=== PATIENT | female | born 1995 ===

== ENCOUNTER 2017-10-24 07:20 | Emergency (ER) | payer SELFPAY ==
[2017-10-24 07:32] VITALS: RESP 16; O2SAT 100
[2017-10-24] MEDS ORDERED: Lactated Ringer's 1,000 ML IV STA (07:34)
[2017-10-24] MEDS ORDERED: Lactated Ringer's 1,000 ML ONE (07:56)
[2017-10-24 08:07] LABS: BASO # 0.1 K/uL (0.0-0.2); BASO % 0.9 % (0.0-2.0); EOS # 0.1 K/uL (0.0-0.7); EOS % 1.2 % (0.0-4.0); HEMATOCRIT 37.2 % (34.0-47.0); LYMPH # 2.4 K/uL (1.0-4.3); LYMPH % 32.9 % (20.0-40.0); MEAN CORPUSCULAR HEMOGLOBIN 29.4 pg (27.0-31.0); MEAN CORPUSCULAR HGB CONC 34.1 g/dL (33.0-37.0); MEAN PLATELET VOLUME 8.4 fL (7.2-11.7); MONO # 0.5 K/uL (0.0-0.8); MONO % 7.2 % (0.0-10.0); RED CELL DISTRIBUTION WIDTH 12.6 % (11.5-14.5); WHITE BLOOD COUNT 7.3 K/uL (4.8-10.8)
[2017-10-24 08:18] LABS: RBC URINE 1257 /hpf (0-3); URINE BACTERIA RARE (<OCC); URINE BILIRUBIN NEGATIVE (NEGATIVE); URINE BLOOD 3+ (NEGATIVE); URINE COLOR Yellow (YELLOW); URINE GLUCOSE (UA) NORMAL (Normal); URINE KETONE NEGATIVE (NEGATIVE); URINE LEUKOCYTE ESTERASE NEG Leu/uL (Negative); URINE PROTEIN NEGATIVE (NEGATIVE); URINE UROBILINOGEN NORMAL mg/dL (0.2-1.0); WBC URINE 2 /hpf (0-5)
[2017-10-24 08:19] LABS: ALB/GLOB RATIO 1.5 (1.0-2.1); ALKALINE PHOSPHATASE 43 U/L (38-126); ALT/SGPT 63 U/L (9-52); AST/SGOT 29 U/L (14-36); BILIRUBIN,TOTAL 0.4 mg/dL (0.2-1.3); BLOOD UREA NITROGEN 8 mg/dL (7-17); CALCIUM 8.9 mg/dl (8.6-10.4); CARBON DIOXIDE 26 mmol/L (22-30); CHLORIDE 103 mmol/L (98-107); GFR AFRICAN-AMERICAN > 60; GLUCOSE,RANDOM 102 mg/dL (65-105); POTASSIUM 3.9 mmol/L (3.6-5.2); SODIUM 137 mmol/L (132-148); TOTAL PROTEIN 7.2 g/dL (6.3-8.3)
--- NOTE | 2017-10-24 10:15 | C.PDOC ---
History Of Present Illness 22yo female, , LMP 3 months ago, presents to ED with complaints of vaginal bleeding since this morning. Patient states she also passed some tissue vaginally. She denies any abdominal pain, nausea, vomiting or dysuria. No other complaints. Time Seen by Provider: 10/24/17 07:32 Chief Complaint (Nursing): Female Genitourinary History Per: Patient History/Exam Limitations: no limitations Onset/Duration Of Symptoms: Hrs Current Symptoms Are (Timing): Still Present Associated Symptoms: denies: Nausea, Vomiting, Diarrhea Abnormal Vaginal Bleeding: Yes Last Menstral Period: 3 months ago Past Medical History Reviewed: Historical Data, Nursing Documentation, Vital Signs Vital Signs: Last Vital Signs Temp 98.3 F 10/24/17 10:55 Pulse 85 10/24/17 10:55 Resp 16 10/24/17 10:55 BP 102/66 10/24/17 10:55 Pulse Ox 100 10/24/17 10:55 - Medical History PMH: Anemia Surgical History: No Surg Hx Family History: States: No Known Family Hx - Social History Hx Alcohol Use: No Hx Substance Use: No - Immunization History Hx Tetanus Toxoid Vaccination: No Hx Influenza Vaccination: No Hx Pneumococcal Vaccination: No Review Of Systems Except As Marked, All Systems Reviewed And Found Negative. Gastrointestinal: Negative for: Nausea, Vomiting, Abdominal Pain, Diarrhea Genitourinary: Positive for: Vaginal Discharge (tissue), Vaginal Bleeding Physical Exam - Physical Exam Appears: No Acute Distress Skin: Normal Color Neck: Supple Cardiovascular: Rhythm Regular Respiratory: Normal Breath Sounds Gastrointestinal/Abdominal: Normal Exam, Soft, No Tenderness Neurological/Psych: Oriented x3 ED Course And Treatment - Laboratory Results Result Diagrams: 10/24/17 07:59 10/24/17 07:59 O2 Sat by Pulse Oximetry: 100 (RA) Pulse Ox Interpretation: Normal Medical Decision Making Medical Decision Making: Plan: -- US Pelvis/Transvaginal -- Labs -- IV Lactated Ringers Disposition - Disposition Referrals: Singh Villasenor, [Non-Staff] - Disposition: HOME/ ROUTINE Disposition Time: 10:30 Condition: GOOD Additional Instructions: Thank you for letting us take care of you today. The emergency medical care you received today was directed at your acute symptoms. If you were prescribed any medication, please fill it and take as directed. It may take several days for your symptoms to resolve. Return to the Emergency Department if your symptoms worsen, do not improve, or if you have any other problems. Please contact your doctor or call one of the physicians/clinics you have been referred to that are listed on the Patient Visit Information form that is included in your discharge packet. Bring any paperwork you were given at discharge with you along with any medications you are taking to your follow up visit. Our treatment cannot replace ongoing medical care by a primary care provider (PCP) outside of the emergency department. Thank you for allowing the [facility] team to be part of your care today. Return to the emergency room in 2 days for repeat blood work and possibly another ultrasound. If you start to bleed heavily, please return immediately. Prescriptions: Cephalexin [cephalexin] 500 mg PO Q8 #15 cap Instructions: Threatened Miscarriage (ED), Urinary Tract Infection in Women (ED ), Pelvic Rest (ED) Forms: [facility] (Turkmen) - Clinical Impression Clinical Impression: Threatened - Scribe Statement The provider has reviewed the documentation as recorded by the Rasheeda Rinaldi Provider Attestation: All medical record entries made by the Rasheeda were at my direction and personally dictated by me. I have reviewed the chart and agree that the record accurately reflects my personal performance of the history, physical exam, medical decision making, and the department course for this patient. I have also personally directed, reviewed, and agree with the discharge instructions and disposition.
--- NOTE | 2017-10-24 10:27 | US ---
Pelvic ultrasound History: Vaginal bleeding. Comparison: None available. Technique: Real-time sonography performed through the pelvis. Findings: Positive test with HCG level measuring 5237. Uterus: 8.7 x 4.6 x 5.2 centimeters. Heterogeneous echotexture. Anteverted. Somewhat thickened and heterogeneous endometrium measuring up to 1.1 centimeters. Question mild vascularity and or question of possible small clot at this level. Clinical correlation. No discrete intrauterine identified. Small amount of free fluid within the pelvic cul-de-sac. Right ovary: 3.6 x 2.0 x 3.1 centimeters. Normal flow. Left ovary: 2.8 x 2.3 x 2.2 centimeters. Normal flow. Impression: Positive test. No discrete intrauterine identified. These findings may represent a missed versus early versus ectopic . Continued interval follow-up is recommended if indicated. Somewhat thickened and heterogeneous endometrium measuring up to 1.1 centimeters. Question mild vascularity and or question of possible small clot at this level. Clinical correlation. Small amount of free fluid within the pelvic cul-de-sac. Limited 1st trimester ultrasound for viability purposes only. Continued interval followup with serial ultrasound, serial HCG levels, and gynecological consultation would be helpful if clinically indicated.
[2017-10-24 10:55] VITALS: BP 102/66; PULSE 85; TEMP 98.3
== END 2017-10-24 11:14 | disposition home or self-care (01) ==
LOC: C.ER 07:20
DX: O20.0 Threatened abortion (principal)
CPT/HCPCS: 76830; 76856; 80053; 81001; 83690; 84702; 85025; 86850; 86900; 87086; 96360; 99284; J7120

== ENCOUNTER 2017-10-26 11:11 | Emergency (ER) | payer SELFPAY ==
[2017-10-26 11:32] VITALS: TEMP 98.3
--- NOTE | 2017-10-26 11:37 | C.PDOC ---
History Of Present Illness 22 year old female presents to the ED for a repeat beta hCG count and ultrasound. Patient was evaluated in this ED two days ago for complaints of vaginal bleeding for one day. Patient notes she passed some tissue prior to being evaluated in the ED. Patient underwent ultrasound which showed questionable IUP; results were questionable for miscarriage vs ectoptic . Patient states she still has some mild vaginal bleeding with cramping , but her symptoms have improved overall. Patient denies fever, chills, back pain at this time. Time Seen by Provider: 10/26/17 11:34 Chief Complaint (Nursing): Medical Clearance History Per: Patient History/Exam Limitations: no limitations Onset/Duration Of Symptoms: Days Current Symptoms Are (Timing): Better Additional History Per: Patient Past Medical History Reviewed: Historical Data, Nursing Documentation, Vital Signs Vital Signs: Last Vital Signs Temp 98.3 F 10/26/17 11:28 Pulse 84 10/26/17 14:19 Resp 16 10/26/17 14:19 BP 123/75 10/26/17 14:19 Pulse Ox 99 10/26/17 19:33 - Medical History PMH: Anemia Surgical History: No Surg Hx Family History: States: Unknown Family Hx - Social History Hx Alcohol Use: No Hx Substance Use: No - Immunization History Hx Tetanus Toxoid Vaccination: No Hx Influenza Vaccination: No Hx Pneumococcal Vaccination: No Review Of Systems Constitutional: Negative for: Fever, Chills Gastrointestinal: Positive for: Abdominal Pain (cramping ) Genitourinary: Positive for: Vaginal Bleeding Physical Exam - Physical Exam Appears: Non-toxic, No Acute Distress Skin: Normal Color, Warm, Dry Oral Mucosa: Moist Gastrointestinal/Abdominal: Soft, No Tenderness, No Guarding, No Rebound Neurological/Psych: Oriented x3, Normal Speech, Normal Cognition ED Course And Treatment O2 Sat by Pulse Oximetry: 99 (on RA) Pulse Ox Interpretation: Normal - CT Scan/US transvaginal US Other Rad Studies (CT/US): Interpreted By Me, Read By Radiologist, Radiology Report Reviewed CT/US Interpretation: HISTORY: sponat. vs ectopic . COMPARISON: None available. TECHNIQUE: Transvaginal pelvic ultrasound. FINDINGS: UTERUS: Measures 9.5 x 4.3 x 6.7 cm. Anteverted. ENDOMETRIUM: Measures 1.1 cm in diameter. No evidence of intrauterine gestational sac. CERVIX: No cervical abnormality identified. RIGHT OVARY: Measures 3.6 x 1.9 x 3.5 cm. Blood flow is demonstrated. LEFT OVARY: Measures 3.4 x 2.1 x 2.9 cm. Blood flow is demonstrated. FREE FLUID: No significant free fluid noted. OTHER FINDINGS: None. IMPRESSION: No evidence of intrauterine gestational sac. If indeed the patient is based on serum beta HCG values, the sonographic findings represent either: Very early IUP; embryonic demise; ectopic gestation. Follow-up with serial quantitative serum beta HCG measurements and post OBGYN follow-up as clinically indicated, since ectopic gestation cannot be excluded based only on sonographic findings. Progress Note: Labs ordered and reviewed. Transvaginal US ordered and reviewed. Patient's beta hCG results dropped significantly from around 5000 to 800. Patient is resting comfortably, showing no signs of distress and is stable for discharge. Patient is advised to return to ED in 2 days for repeat beta count and to follow up with FOUNDR[employer] WORKER APPRENTICE within 1-2 days for further evaluation. Disposition - Disposition Disposition: HOME/ ROUTINE Disposition Time: 13:49 Condition: GOOD Additional Instructions: Follow up with OBGYN within 1-2 days. Return to Ed in 2-3 days to repeat beta HCG. Return to ED immediately if feel worse. Instructions: Spontaneous Miscarriage (ED) Forms: [employer] (Croatian) - Clinical Impression Clinical Impression: Vaginal bleeding affecting early - PA / ASSISTANT PROJECT MANAGER / Resident Statement MD/DO has reviewed & agrees with the documentation as recorded. - Scribe Statement The provider has reviewed the documentation as recorded by the Scribe (Meenakshi Jensen) All medical record entries made by the Scribe were at my direction and personally dictated by me. I have reviewed the chart and agree that the record accurately reflects my personal performance of the history, physical exam, medical decision making, and the department course for this patient. I have also personally directed, reviewed, and agree with the discharge instructions and disposition.
--- NOTE | 2017-10-26 12:49 | US ---
HISTORY: sponat. vs ectopic COMPARISON: None available. TECHNIQUE: Transvaginal pelvic ultrasound FINDINGS: UTERUS: Measures 9.5 x 4.3 x 6.7 cm. Anteverted. ENDOMETRIUM: Measures 1.1 cm in diameter. No evidence of intrauterine gestational sac. CERVIX: No cervical abnormality identified. RIGHT OVARY: Measures 3.6 x 1.9 x 3.5 cm. Blood flow is demonstrated. LEFT OVARY: Measures 3.4 x 2.1 x 2.9 cm. Blood flow is demonstrated. FREE FLUID: No significant free fluid noted. OTHER FINDINGS: None. IMPRESSION: No evidence of intrauterine gestational sac. If indeed the patient is based on serum beta HCG values, the sonographic findings represent either: Very early IUP; embryonic demise; ectopic gestation. Follow-up with serial quantitative serum beta HCG measurements and post OBGYN follow-up as clinically indicated, since ectopic gestation cannot be excluded based only on sonographic findings.
[2017-10-26 14:20] VITALS: BP 123/75; PULSE 84; RESP 16
[2017-10-26 19:22] VITALS: O2SAT 99
== END 2017-10-26 14:19 | disposition home or self-care (01) ==
LOC: C.ER 11:11
DX: O20.9 Hemorrhage in early pregnancy, unspecified (principal); Z3A.00 Weeks of gestation of pregnancy not specified

== ENCOUNTER 2017-10-28 13:01 | Emergency (ER) | payer SELFPAY ==
[2017-10-28 13:13] VITALS: O2SAT 98
--- NOTE | 2017-10-28 13:43 | C.PDOC ---
History Of Present Illness 22 y/o female presents to ED for repeat beta HCG and with complaints of mild abdominal pain and vaginal bleeding. Patient was seen at ED on 10/26/17 for same symptoms and was told to come back in 2 days for beta repeat. Patient denies fever, chills, back pain or any other complaints at this time. Time Seen by Provider: 10/28/17 13:25 Chief Complaint (Nursing): Abdominal Pain History Per: Patient History/Exam Limitations: no limitations Onset/Duration Of Symptoms: Days Current Symptoms Are (Timing): Still Present Location Of Pain/Discomfort: Suprapubic Past Medical History Reviewed: Historical Data, Nursing Documentation, Vital Signs Vital Signs: Last Vital Signs Temp 98.6 F 10/28/17 16:15 Pulse 58 L 10/28/17 16:15 Resp 16 10/28/17 16:15 BP 98/61 L 10/28/17 16:15 Pulse Ox 98 10/28/17 16:15 - Medical History PMH: Anemia Surgical History: No Surg Hx Family History: States: No Known Family Hx - Social History Hx Alcohol Use: No Hx Substance Use: No - Immunization History Hx Tetanus Toxoid Vaccination: No Hx Influenza Vaccination: No Hx Pneumococcal Vaccination: No Review Of Systems Constitutional: Negative for: Fever, Chills Gastrointestinal: Positive for: Abdominal Pain. Negative for: Nausea, Vomiting Genitourinary: Positive for: Vaginal Bleeding. Negative for: Dysuria Skin: Negative for: Rash Physical Exam - Physical Exam Appears: Non-toxic Skin: Normal Color, Warm, Dry, No Rash Head: Atraumatic, Normacephalic Eye(s): bilateral: Normal Inspection, EOMI Oral Mucosa: Moist Neck: Supple Chest: Symmetrical Cardiovascular: Rhythm Regular Respiratory: Normal Breath Sounds, No Rales, No Rhonchi, No Wheezing Gastrointestinal/Abdominal: Soft, No Tenderness, No Guarding, No Rebound Back: No CVA Tenderness Extremity: Normal ROM, No Deformity, No Swelling Neurological/Psych: Oriented x3, Normal Speech Gait: Steady ED Course And Treatment O2 Sat by Pulse Oximetry: 98 (RA) Pulse Ox Interpretation: Normal Medical Decision Making Medical Decision Making: Impression: Miscarriage Plan:Beta HCG Progress: Beta HCG levels lowered from 5000 to 800. Today BHCG is 300. Trending down. Patient is seated comfortably in no distress, chatting with friend at bedside. Provide lab report. Instruct to follow up with associate professor of radiology for further evaluation and have lab repeated Disposition Counseled Patient/Family Regarding: Diagnosis, Need For Followup - Disposition Referrals: Yuri Chaudhari MD [Staff Provider] - Disposition: HOME/ ROUTINE Disposition Time: 15:58 Condition: STABLE Additional Instructions: [facility] 300 Follow up with your associate professor of radiology within one week for further evaluation. Advised to have ultrasound in one week Instructions: Spontaneous Miscarriage (ED) Forms: [employer] (Kuwaiti) - POA Present On Arrival: None - Clinical Impression Clinical Impression: - PA / GUEST SERVICES / Resident Statement MD/DO has reviewed & agrees with the documentation as recorded. - Scribe Statement The provider has reviewed the documentation as recorded by the Jeffibchristine Cabrera All medical record entries made by the Jeffibchristine were at my direction and personally dictated by me. I have reviewed the chart and agree that the record accurately reflects my personal performance of the history, physical exam, medical decision making, and the department course for this patient. I have also personally directed, reviewed, and agree with the discharge instructions and disposition.
[2017-10-28 16:16] VITALS: BP 98/61; PULSE 58; RESP 16; TEMP 98.6
== END 2017-10-28 16:18 | disposition home or self-care (01) ==
LOC: C.ER 13:01
DX: O03.9 Complete or unspecified spontaneous abortion without complication (principal)

== ENCOUNTER 2018-02-12 11:47 | Emergency (ER) | payer MEDICAID ==
[2018-02-12 11:52] VITALS: BP 93/63; PULSE 96; RESP 20; TEMP 98.5; O2SAT 100
[2018-02-12] MEDS ORDERED: Sodium Chloride 0.9% 1,000 ML IV ONE (12:16)
--- NOTE | 2018-02-12 12:36 | C.PDOC ---
History Of Present Illness 22 years old female is currently 12 weeks , , presents to ED with complaints of vomiting that began 2 days ago. Patient reports she vomited multiple times today. Patient also reports associated symptoms of upper abdominal and throat pain. Denies fever, chills, dysuria, pelvic pain or bleeding. Time Seen by Provider: 02/12/18 12:10 Chief Complaint (Nursing): GI Problem History Per: Patient History/Exam Limitations: no limitations Onset/Duration Of Symptoms: Days (2) Current Symptoms Are (Timing): Still Present Recent travel outside of the [place]: No Past Medical History Reviewed: Historical Data, Nursing Documentation, Vital Signs Vital Signs: Last Vital Signs Temp 98.5 F 02/12/18 11:50 Pulse 96 H 02/12/18 11:50 Resp 20 02/12/18 11:50 BP 93/63 L 02/12/18 11:50 Pulse Ox 100 02/12/18 13:54 - Medical History PMH: Anemia Family History: States: Unknown Family Hx - Social History Hx Alcohol Use: No Hx Substance Use: No - Immunization History Hx Tetanus Toxoid Vaccination: No Hx Influenza Vaccination: No Hx Pneumococcal Vaccination: No Review Of Systems Constitutional: Negative for: Fever, Chills Gastrointestinal: Positive for: Vomiting, Abdominal Pain. Negative for: Diarrhea Genitourinary: Negative for: Dysuria, Vaginal Bleeding, Pelvic Pain Neurological: Negative for: Weakness, Numbness Physical Exam - Physical Exam Appears: Well, Non-toxic, No Acute Distress Skin: Normal Color, Warm, Dry Head: Atraumatic, Normacephalic Eye(s): bilateral: Normal Inspection, PERRL Oral Mucosa: Moist Neck: Supple Chest: Symmetrical, No Tenderness Cardiovascular: Rhythm Regular Respiratory: Normal Breath Sounds, No Decreased Breath Sounds, No Rales, No Rhonchi, No Wheezing Gastrointestinal/Abdominal: Soft, No Tenderness Neurological/Psych: Oriented x3, Normal Speech, Normal Cognition, Other (no focal deficits ) ED Course And Treatment - Laboratory Results Result Diagrams: 02/12/18 12:38 02/12/18 12:38 O2 Sat by Pulse Oximetry: 100 (RA) Pulse Ox Interpretation: Normal Medical Decision Making Medical Decision Making: Administered Zofran and IV fluids. Ordered blood work and urinalysis. UA showed UTI. Culture sent and ordered IV Rocephin On re-eval, patient reports feeling better. She has no fever or abdominal tenderness. Rx given. Patient now able to tolerate PO. Patient stable for discharge. Disposition Counseled Patient/Family Regarding: Diagnosis, Need For Followup, Rx Given - Disposition Referrals: Niranjan [facility] [Outside] Disposition: HOME/ ROUTINE Disposition Time: 13:53 Condition: GOOD Additional Instructions: Jannette laboratorios muestran infeccin en la orina. [place] antibiticos dos veces al da y tome lquidos. monica medicamentos para las nuseas segn sea necesario. seguimiento con watson ob.diesel truck mechanic Prescriptions: Doxylamine/Pyridoxine HCl (B6) [Eliud Bailey 10-10 mg Tablet] 1 each PO Q8 #12 tablet. Nitrofurantoin Macrocrystals [Macrobid] 1 cap PO BID #14 cap Instructions: Urinary Tract Infections in Adults, Nausea and Vomiting of (DC) Forms: [employer] (Italian), Work Excuse Print Language: TRISTANIAN - Clinical Impression Clinical Impression: UTI (urinary tract infection), Vomiting affecting - PA / DIRECTOR HEMATOLOGY / Resident Statement MD/DO has reviewed & agrees with the documentation as recorded. - Scribe Statement The provider has reviewed the documentation as recorded by the Rasheeda Cardoso All medical record entries made by the Rasheeda were at my direction and personally dictated by me. I have reviewed the chart and agree that the record accurately reflects my personal performance of the history, physical exam, medical decision making, and the department course for this patient. I have also personally directed, reviewed, and agree with the discharge instructions and disposition.
[2018-02-12 12:42] LABS: BASO % 0.6 % (0.0-2.0); EOS % 0.1 % (0.0-4.0); HEMOGLOBIN 12.5 g/dL (11.0-16.0); LYMPH # 1.1 K/uL (1.0-4.3); LYMPH % 15.9 % (20.0-40.0); MEAN CELL VOLUME 83.7 fL (81.0-99.0); MEAN CORPUSCULAR HEMOGLOBIN 29.5 pg (27.0-31.0); MEAN CORPUSCULAR HGB CONC 35.3 g/dL (33.0-37.0); MEAN PLATELET VOLUME 8.5 fL (7.2-11.7); MONO # 0.3 K/uL (0.0-0.8); MONO % 3.8 % (0.0-10.0); NEUT # 5.7 K/uL (1.8-7.0); NEUT % 79.6 % (50.0-75.0); RBC 4.22 Mil/uL (3.80-5.20); RED CELL DISTRIBUTION WIDTH 12.4 % (11.5-14.5); WHITE BLOOD COUNT 7.2 K/uL (4.8-10.8)
[2018-02-12 12:48] LABS: SQUAMOUS EPITHIAL 36 /hpf (0-5); URINE BACTERIA OCC (<OCC); URINE BILIRUBIN NEGATIVE (NEGATIVE); URINE BLOOD NEGATIVE (NEGATIVE); URINE CLARITY Hazy (Clear); URINE COLOR Amber (YELLOW); URINE GLUCOSE (UA) NORMAL (Normal); URINE LEUKOCYTE ESTERASE 3+ Leu/uL (Negative); URINE PROTEIN 2+ mg/dL (NEGATIVE); URINE UROBILINOGEN NORMAL mg/dL (0.2-1.0)
[2018-02-12 12:51] LABS: HCG,QUALITATIVE URINE POSITIVE (NEGATIVE)
[2018-02-12 13:01] LABS: ALBUMIN 4.2 g/dL (3.5-5.0); ALT/SGPT 11 U/L (9-52); AST/SGOT 21 U/L (14-36); BLOOD UREA NITROGEN 10 mg/dL (7-17); CALCIUM 9.5 mg/dl (8.6-10.4); GFR AFRICAN-AMERICAN > 60; GFR NON-AFRICAN AMERICAN > 60
[2018-02-12] MEDS ORDERED: cefTRIAXone IV 1 gm in Dextros 50 ML IV ONE (13:03)
[2018-02-12] MEDS ORDERED: cefTRIAXone IV 1 gm in Dextros 50 ML IVPB ONE (13:21)
== END 2018-02-12 14:26 | disposition home or self-care (01) ==
LOC: C.ER 11:47
DX: O21.9 Vomiting of pregnancy, unspecified (principal); O23.41 Unspecified infection of urinary tract in pregnancy, first trimester; Z3A.12 12 weeks gestation of pregnancy
CPT/HCPCS: 80053; 81001; 84702; 84703; 85025; 87086; 87181; 96361; 96374; 96375; 99284; J0696; J2405; J7040

== ENCOUNTER 2018-03-31 17:07 | Emergency (ER) | payer MEDICAID ==
[2018-03-31 17:50] LABS: HCG,QUALITATIVE URINE POSITIVE (NEGATIVE)
[2018-03-31 17:55] LABS: SQUAMOUS EPITHIAL 25 /hpf (0-5); URINE BACTERIA RARE (<OCC); URINE BILIRUBIN NEGATIVE (NEGATIVE); URINE BLOOD NEGATIVE (NEGATIVE); URINE CLARITY Hazy (Clear); URINE COLOR Yellow (YELLOW); URINE GLUCOSE (UA) NORMAL (Normal); URINE LEUKOCYTE ESTERASE 3+ Leu/uL (Negative); URINE PROTEIN NEGATIVE (NEGATIVE); URINE UROBILINOGEN NORMAL mg/dL (0.2-1.0)
[2018-03-31 18:05] LABS: BASO # 0.1 K/uL (0.0-0.2); BASO % 0.8 % (0.0-2.0); EOS % 0.6 % (0.0-4.0); HEMOGLOBIN 11.4 g/dL (11.0-16.0); LYMPH # 1.8 K/uL (1.0-4.3); LYMPH % 26.7 % (20.0-40.0); MEAN CELL VOLUME 83.1 fL (81.0-99.0); MEAN CORPUSCULAR HEMOGLOBIN 29.2 pg (27.0-31.0); MEAN CORPUSCULAR HGB CONC 35.1 g/dL (33.0-37.0); MEAN PLATELET VOLUME 8.3 fL (7.2-11.7); MONO # 0.5 K/uL (0.0-0.8); MONO % 8.1 % (0.0-10.0); NEUT # 4.3 K/uL (1.8-7.0); NEUT % 63.8 % (50.0-75.0); RBC 3.91 Mil/uL (3.80-5.20); RED CELL DISTRIBUTION WIDTH 13.3 % (11.5-14.5); WHITE BLOOD COUNT 6.7 K/uL (4.8-10.8)
--- NOTE | 2018-03-31 18:15 | C.PDOC ---
History Of Present Illness <Shira iRvera - Last Filed: 03/31/18 18:43> <Walter Perez - Last Filed: 03/31/18 20:00> 22 y/o female currently 19 weeks presents to ED with c/o low abdominal pain for 3 days associated with dysuria. Patient has history of UTI 2 months ago and reports symptoms feel the same. Patient denies fever, vaginal bleeding, vaginal discharge, nausea, vomiting or any other complaints at this time. (Shira Rivera) History Per: Patient History/Exam Limitations: no limitations Onset/Duration Of Symptoms: Days Current Symptoms Are (Timing): Still Present Quality Of Discomfort: "Pain" Associated Symptoms: Urinary Symptoms <Shira Rivera - Last Filed: 03/31/18 18:43> <Walter Perez - Last Filed: 03/31/18 20:00> Time Seen by Provider: 03/31/18 17:38 Chief Complaint (Nursing): Female Genitourinary Past Medical History Reviewed: Historical Data, Nursing Documentation, Vital Signs - Medical History PMH: Anemia Surgical History: No Surg Hx Family History: States: No Known Family Hx - Social History Hx Alcohol Use: No Hx Substance Use: No - Immunization History Hx Tetanus Toxoid Vaccination: No Hx Influenza Vaccination: No Hx Pneumococcal Vaccination: No <Shira Rivera - Last Filed: 03/31/18 18:43> Vital Signs: Last Vital Signs Temp 98.4 F 03/31/18 17:09 Pulse 98 H 03/31/18 17:09 Resp 16 03/31/18 17:09 BP 100/62 03/31/18 17:09 Pulse Ox 99 03/31/18 18:44 Review Of Systems Constitutional: Negative for: Fever, Chills Gastrointestinal: Positive for: Abdominal Pain. Negative for: Nausea, Vomiting , Diarrhea Genitourinary: Positive for: Dysuria. Negative for: Vaginal Discharge, Vaginal Bleeding Musculoskeletal: Negative for: Back Pain Skin: Negative for: Rash <Sihra Rivera - Last Filed: 03/31/18 18:43> Physical Exam - Physical Exam Appears: Non-toxic, No Acute Distress Skin: Warm, Dry, No Rash Head: Atraumatic, Normacephalic Eye(s): bilateral: Normal Inspection, EOMI Nose: Normal Oral Mucosa: Moist Neck: Normal ROM, Supple Cardiovascular: Rhythm Regular Respiratory: Normal Breath Sounds, No Rales, No Rhonchi, No Wheezing Gastrointestinal/Abdominal: Tenderness (Suprapubic), No Guarding, No Rebound, Other (Gravid abdomen) Back: No CVA Tenderness, No Paraspinal Tenderness Neurological/Psych: Oriented x3, Normal Speech, Normal Cognition <Shira Rivera - Last Filed: 03/31/18 18:43> ED Course And Treatment - Laboratory Results Result Diagrams: 03/31/18 17:55 O2 Sat by Pulse Oximetry: 99 (RA) Pulse Ox Interpretation: Normal Progress Note: Blood work, UA and Pelvis US ordered. Macrobid administered. Patient offered pain medication and diclined. Case endorsed to Dr. Perez pending US and re-evaluation. <Shira Rivera - Last Filed: 03/31/18 18:43> - Laboratory Results Result Diagrams: 03/31/18 17:55 03/31/18 17:55 - CT Scan/US Pelvic US Other Rad Studies (CT/US): Read By Radiologist, Radiology Report Reviewed CT/US Interpretation: IMPRESSION: Single live IUP as above. Limited study. Progress Note: Pt was signed out to me at 7pm by Dr. Smalls/SHELLEY Roe to f/up pelvic US report. Reassessment Condition: Improved <Walter Perez - Last Filed: 03/31/18 20:00> Disposition - Disposition Disposition Time: 19:00 <Shira Rivera - Last Filed: 03/31/18 18:43> Counseled Patient/Family Regarding: Studies Performed, Diagnosis, Need For Followup, Rx Given - Disposition Disposition Time: 20:00 <Walter Perez - Last Filed: 03/31/18 20:00> - Disposition Referrals: Tony Ely MD [Staff Provider] - Disposition: HOME/ ROUTINE Condition: STABLE Additional Instructions: Drink plenty of fluids. Follow up with your Pressure Sealer And Tester doctor. Return to the ER if you develop fever, vomiting, vaginal bleeding or discharge, worsening of symptoms or if you have any other concerns. Prescriptions: Nitrofurantoin Macrocrystals [Macrobid] 1 cap PO BID #14 cap Instructions: Urinary Tract Infection, Adult (DC) Forms: [employer] (Belarusian) - Clinical Impression Clinical Impression: UTI (urinary tract infection), with 18 completed weeks gestation - PA / CONCRETING SUPERVISOR / Resident Statement MD/DO has reviewed & agrees with the documentation as recorded. - Scribe Statement The provider has reviewed the documentation as recorded by the Scribe <Shira Rivera - Last Filed: 03/31/18 18:43> <Walter Perez - Last Filed: 03/31/18 20:00> - Scribe Statement Lowell Cabrera All medical record entries made by the Scribe were at my direction and personally dictated by me. I have reviewed the chart and agree that the record accurately reflects my personal performance of the history, physical exam, medical decision making, and the department course for this patient. I have also personally directed, reviewed, and agree with the discharge instructions and disposition. (Shira Rivera)
[2018-03-31 18:44] LABS: ALBUMIN 3.6 g/dL (3.5-5.0); GFR AFRICAN-AMERICAN > 60; GFR NON-AFRICAN AMERICAN > 60
[2018-03-31 18:51] LABS: ALT/SGPT 17 U/L (9-52); AST/SGOT 21 U/L (14-36); BLOOD UREA NITROGEN 7 mg/dL (7-17); CALCIUM 9.3 mg/dl (8.6-10.4)
--- NOTE | 2018-03-31 19:44 | US ---
EXAM: US After First Trimester, Transabdominal CLINICAL HISTORY: 22 years old, female; Pain; complicated by abdominal or pelvic pain; Generalized abdominal pain; Second trimester; Gestational age or lmp: [id number]; TECHNIQUE: Real-time transabdominal obstetrical ultrasound of the maternal pelvis and a second or third trimester with image documentation. COMPARISON: No relevant prior studies available. FINDINGS: Fetus: Single live intrauterine cephalic presentation. Heart rate: 161 bpm Placenta: Posterior. No abruption. Anatomy: Not evaluated. BIOMETRICS Gestational age: 18 weeks 4 days +/- 1 week 2 days SANDRA: 08/28/2018 EFW: 242 +/- 36 g BPD: 4.22 cm HC: 15.34 cm AC: 12.48 cm FL: 2.9 cm MATERNAL: Uterus: No acute abnormality as visualized. Cervix: No acute abnormality as visualized. Closed. Free fluid: No free fluid. IMPRESSION: Single live IUP as above. Limited study.
[2018-03-31 20:10] VITALS: BP 97/63; PULSE 84; RESP 18; TEMP 98; O2SAT 98
== END 2018-03-31 20:10 | disposition home or self-care (01) ==
LOC: C.ER 17:07
DX: O23.42 Unspecified infection of urinary tract in pregnancy, second trimester (principal); Z3A.18 18 weeks gestation of pregnancy

== ENCOUNTER 2018-05-31 10:35 | Emergency (ER) | payer MEDICAID ==
[2018-05-31] MEDS ORDERED: Lactated Ringer's 1,000 ML IV ONE (11:11)
[2018-05-31 11:34] LABS: BASO % 0.4 % (0.0-2.0); EOS # 0.1 K/uL (0.0-0.7); EOS % 0.7 % (0.0-4.0); HEMOGLOBIN 10.6 g/dL (11.0-16.0); LYMPH # 1.8 K/uL (1.0-4.3); LYMPH % 21.8 % (20.0-40.0); MEAN CORPUSCULAR HEMOGLOBIN 29.9 pg (27.0-31.0); MEAN PLATELET VOLUME 8.5 fL (7.2-11.7); MONO # 0.5 K/uL (0.0-0.8); MONO % 6.1 % (0.0-10.0); NEUT # 5.8 K/uL (1.8-7.0); RBC 3.54 Mil/uL (3.80-5.20); RED CELL DISTRIBUTION WIDTH 14.1 % (11.5-14.5); WHITE BLOOD COUNT 8.1 K/uL (4.8-10.8)
[2018-05-31 11:36] LABS: MEAN CELL VOLUME 85.6 fL (81.0-99.0); SQUAMOUS EPITHIAL 14 /hpf (0-5); URINE BILIRUBIN NEGATIVE (NEGATIVE); URINE BLOOD NEGATIVE (NEGATIVE); URINE CLARITY Hazy (Clear); URINE COLOR Yellow (YELLOW); URINE GLUCOSE (UA) NORMAL (Normal); URINE LEUKOCYTE ESTERASE 3+ Leu/uL (Negative); URINE PROTEIN NEGATIVE (NEGATIVE); URINE UROBILINOGEN NORMAL mg/dL (0.2-1.0)
[2018-05-31 11:53] LABS: ALB/GLOB RATIO 1.1 (1.0-2.1); ALBUMIN 3.6 g/dL (3.5-5.0); ALT/SGPT 21 U/L (9-52); AMYLASE 64 U/L (30-110); AST/SGOT 15 U/L (14-36); BILIRUBIN,DIRECT 0.4 mg/dL (0.0-0.4); BLOOD UREA NITROGEN 6 mg/dL (7-17); CALCIUM 9.2 mg/dl (8.6-10.4); GFR AFRICAN-AMERICAN > 60; GFR NON-AFRICAN AMERICAN > 60; LIPASE 38 U/L (23-300)
--- NOTE | 2018-05-31 13:49 | OBDCSUM ---
Datetime: 05/31/2018 13:48 Discharged to, Provider: Home Follow up at, Provider: 1 day Follow up in weeks, Provider: clinic Discharge Comment, Provider: dc home ptl given po hy macrobid f/u Discharge Diagnosis Prov Other: 28week nst gasytroenteritis
--- NOTE | 2018-05-31 13:50 | OBHP ---
Datetime: 05/31/2018 13:44 IP Adm Impression: , intrauterine IP Chief Complaint Other: vomting IP Admit Plan: Discharge home Admit Comment, IP Provider: at 28weeks came with c/o vomiting x 5 and c/o constant abdominal pa in from morning, no vb , lof+fm obhx primi pmh de med pnv all nkda psh de soch de ve closed terb given ua 3 + le a/p at 28 weks gastronteritis/uti/ ctxs plan dc home ptl given po hy macrobid f/u Pelvic Type - PN: Adequate Extremities - PN: Normal Abdomen - PN: Normal Back - PN: Normal Breast - PN: Normal Lungs - PN: Normal Heart - PN: Normal Thyroid - PN: Normal Neurologic - PN: Normal HEENT - PN: Normal General - PN: Normal FHR - Baseline A Provider: 150 Contraction Comments Provider: none Vital Signs Provider: Reviewed; Within Normal Limits NICHD Variability Prov Fetus A: Moderate 6-25bpm NICHD Accel Fetus A IP Provider: 10X10 FHR Category Provider Fetus A: Category I Dilatation, Provider: 0 Effacement, Provider: 0 Station, Provider: 0 Genitourinary Exam: Normal DTRs - PN: Normal
--- NOTE | 2018-05-31 16:06 | OBHP ---
Datetime: 05/31/2018 16:04 Admit Comment, IP Provider: while we were preparing for discharge pt complain of pain irrg ctxs ve closed s/p terb plan send to [facility] for evauluation. dr jackson accepted the transfer. pt understand and agrees
[2018-06-06 13:18] VITALS: BP 107/65; PULSE 105
== END 2018-05-31 15:00 | disposition short-term general hospital (02) ==
LOC: C.EROB 10:35
DX: O47.03 False labor before 37 completed weeks of gestation, third trimester (principal); O23.43 Unspecified infection of urinary tract in pregnancy, third trimester; K52.9 Noninfective gastroenteritis and colitis, unspecified; Z3A.28 28 weeks gestation of pregnancy
CPT/HCPCS: 80053; 81001; 82150; 82248; 83690; 85025; 99283; J3105; J7120

== ENCOUNTER 2018-06-21 14:15 | Emergency (ER) | payer MEDICAID ==
[2018-06-21 14:37] VITALS: BMI 24.0
--- NOTE | 2018-06-21 14:44 | OBHP ---
Datetime: 06/21/2018 14:39 IP Adm Impression: , intrauterine IP Chief Complaint Other: nuasea/vomitig Admit Comment, IP Provider: [id number] 32weks came with c/o vomiting started yesterday b 6 times and to day 4 times, no vb, lof+fm obhx rimi pmh de med pnv all nkda psh de soch de ve close a/p a 31wek gastroenteritis cbc/cmp/ua zofran cont enid ivf cont close observation Pelvic Type - PN: Adequate Extremities - PN: Normal Abdomen - PN: Normal Back - PN: Normal Breast - PN: Normal Lungs - PN: Normal Heart - PN: Normal Thyroid - PN: Normal Neurologic - PN: Normal HEENT - PN: Normal General - PN: Normal FHR - Baseline A Provider: 130 Contraction Comments Provider: none NICHD Variability Prov Fetus A: Moderate 6-25bpm Dilatation, Provider: 0 Effacement, Provider: 0 Station, Provider: -3 Genitourinary Exam: Normal DTRs - PN: Normal Datetime: 05/31/2018 16:04 Vital Signs Provider: Reviewed; Within Normal Limits
[2018-06-21] MEDS ORDERED: Lactated Ringer's 1,000 ML IV SCH (14:45)
[2018-06-21 15:00] LABS: BASO % 0.4 % (0.0-2.0); EOS % 0.6 % (0.0-4.0); LYMPH # 1.7 K/uL (1.0-4.3); LYMPH % 21.5 % (20.0-40.0); MEAN CELL VOLUME 85.8 fL (81.0-99.0); MEAN CORPUSCULAR HEMOGLOBIN 29.8 pg (27.0-31.0); MEAN CORPUSCULAR HGB CONC 34.8 g/dL (33.0-37.0); MONO # 0.5 K/uL (0.0-0.8); MONO % 6.7 % (0.0-10.0); NEUT # 5.6 K/uL (1.8-7.0); NEUT % 70.8 % (50.0-75.0); RBC 3.7 Mil/uL (3.80-5.20); RED CELL DISTRIBUTION WIDTH 14.1 % (11.5-14.5); WHITE BLOOD COUNT 7.8 K/uL (4.8-10.8)
[2018-06-21 15:02] LABS: SQUAMOUS EPITHIAL 5 /hpf (0-5); URINE BACTERIA RARE (<OCC); URINE BILIRUBIN NEGATIVE (NEGATIVE); URINE BLOOD NEGATIVE (NEGATIVE); URINE CLARITY Hazy (Clear); URINE COLOR Yellow (YELLOW); URINE GLUCOSE (UA) NORMAL (Normal); URINE LEUKOCYTE ESTERASE 2+ Leu/uL (Negative); URINE PROTEIN NEGATIVE (NEGATIVE); URINE UROBILINOGEN NORMAL mg/dL (0.2-1.0)
[2018-06-21 15:15] LABS: ALB/GLOB RATIO 1.2 (1.0-2.1); ALBUMIN 3.7 g/dL (3.5-5.0); ALT/SGPT 15 U/L (9-52); AST/SGOT 21 U/L (14-36); BLOOD UREA NITROGEN 4 mg/dL (7-17); CALCIUM 9.4 mg/dl (8.6-10.4); GFR AFRICAN-AMERICAN > 60; GFR NON-AFRICAN AMERICAN > 60
--- NOTE | 2018-06-21 15:47 | OBHP ---
Datetime: 06/21/2018 14:39 Admit Comment, IP Provider: [id number] 32weks came with c/o vomiting started yesterday b 6 times and to day 4 times, no vb, lof+fm obhx rimi pmh de med pnv all nkda psh de soch de ve close a/p a 31wek gastroenteritis cbc/cmp/ua zofran cont enid ivf cont close observation 1600 pt feels beter. toleratedc food blod work neg plan dc home ptl gi po hy f/u in clinic in 1-2 da
--- NOTE | 2018-06-21 16:01 | OBDCSUM ---
Datetime: 06/21/2018 15:45 Discharged to, Provider: Home Follow up at, Provider: 1-2 days Disch Instr Activity: Normal activity Disch Instr Diet: Regular Discharge Time: 06/21/2018 15:53 Follow up in weeks, Provider: clinic Disch Referrals: None Discharge Comment, Provider: dc home ptl gi po hy f/u in clinic in 1-2 da Discharge Diagnosis Prov Other: 31 wee gastronetritis
[2018-06-21 20:04] VITALS: BP 92/60; PULSE 86; RESP 20; TEMP 98.8
== END 2018-06-21 16:03 | disposition home or self-care (01) ==
LOC: C.EROB 14:15
DX: O26.893 Other specified pregnancy related conditions, third trimester (principal); K52.9 Noninfective gastroenteritis and colitis, unspecified; Z3A.32 32 weeks gestation of pregnancy
CPT/HCPCS: 80053; 81001; 85025; 96374; 99283; J7120

== ENCOUNTER 2018-08-09 08:17 | Emergency (ER) | payer MEDICAID ==
--- NOTE | 2018-08-09 09:02 | OBHP ---
Datetime: 08/09/2018 08:55 IP Adm Impression: Term, intrauterine IP Admit Plan: Discharge home Admit Comment, IP Provider: at 38weeks came with irrg ctxs stared last night, no pain now,no vb , no lof+fm obhx primi pmh de mned pnv all kda psh de soch de ve //-3 a/p at 38weks early labor dc home labor g po hy f/u in clinic on Pelvic Type - PN: Adequate Extremities - PN: Normal Abdomen - PN: Normal Back - PN: Normal Breast - PN: Normal Lungs - PN: Normal Heart - PN: Normal Thyroid - PN: Normal Neurologic - PN: Normal HEENT - PN: Normal General - PN: Normal FHR - Baseline A Provider: 140 IP Hx Assessment: The History has been Reviewed and is Current EGA AdmitDate IP: 38.0 Vital Signs Provider: Reviewed; Within Normal Limits IP Chief Complaint: Uterine contractions NICHD Variability Prov Fetus A: Moderate 6-25bpm NICHD Accel Fetus A IP Provider: 15X15 FHR Category Provider Fetus A: Category I Dilatation, Provider: ft Effacement, Provider: 30 Station, Provider: -3 Genitourinary Exam: Normal DTRs - PN: Normal
== END 2018-08-09 08:59 | disposition home or self-care (01) ==
LOC: C.EROB 08:17
DX: O47.1 False labor at or after 37 completed weeks of gestation (principal); Z3A.38 38 weeks gestation of pregnancy

== ENCOUNTER 2018-08-18 14:07 | Inpatient (IN) | payer MEDICAID ==
[2018-08-18 15:44] LABS: SQUAMOUS EPITHIAL 5 /hpf (0-5); URINE BACTERIA RARE (<OCC); URINE BILIRUBIN NEGATIVE (NEGATIVE); URINE BLOOD NEGATIVE (NEGATIVE); URINE CLARITY Clear (Clear); URINE COLOR Yellow (YELLOW); URINE GLUCOSE (UA) NORMAL (Normal); URINE LEUKOCYTE ESTERASE 3+ Leu/uL (Negative); URINE PROTEIN NEGATIVE (NEGATIVE); URINE UROBILINOGEN NORMAL mg/dL (0.2-1.0)
[2018-08-18] MEDS ORDERED: Lactated Ringer's 1,000 ML IV ONE (18:09)
[2018-08-18] MEDS ORDERED: Lactated Ringer's 1,000 ML IV SCH (18:15)
[2018-08-18 18:30] LABS: BASO % 0.4 % (0.0-2.0); EOS % 0.4 % (0.0-4.0); HEMOGLOBIN 11.6 g/dL (11.0-16.0); LYMPH # 1.9 K/uL (1.0-4.3); LYMPH % 23.4 % (20.0-40.0); MEAN CELL VOLUME 86.5 fL (81.0-99.0); MEAN CORPUSCULAR HEMOGLOBIN 29.3 pg (27.0-31.0); MEAN CORPUSCULAR HGB CONC 33.9 g/dL (33.0-37.0); MEAN PLATELET VOLUME 10.1 fL (7.2-11.7); MONO # 0.6 K/uL (0.0-0.8); MONO % 7.1 % (0.0-10.0); NEUT # 5.7 K/uL (1.8-7.0); NEUT % 68.7 % (50.0-75.0); NRBC % 0.1 % (0.0-2.0); RBC 3.97 Mil/uL (3.80-5.20); RED CELL DISTRIBUTION WIDTH 13.5 % (11.5-14.5); WHITE BLOOD COUNT 8.2 K/uL (4.8-10.8)
--- NOTE | 2018-08-18 18:49 | US ---
Date of service: 08/18/2018 PROCEDURE: Biophysical profile score HISTORY: subjective vaginal bleed during third trimester COMPARISON: 04/03/2018 TECHNIQUE: Standard protocol for this study/examination. FINDINGS: FINDINGS: Biophysical profile score 8/8 Based on the followin. breathing movements: 2/2 2. Gross body movement: 2/2 3. tone: 2/2 4. Qualitative amniotic fluid index: 2/2 Cephalic presentation. Posterior placenta. No evidence of abruption or previa Gestational age derived from LMP 39 weeks 2 days. SANDRA 08/23/2018. Gestational age derived from the following biometric parameters 39 weeks 2 days. SANDRA 08/23/2018. Biparietal diameter 9.69 cm Head circumference 34.22 cm Abdominal circumference 35.11 cm Femur length 7.67 cm Estimated weight 1714 g Calculated cardiac rate 148 beats per min. Closed cervix measuring 2.70 cm IMPRESSION: Biophysical profile score 8/8. 39 weeks 2 days live intrauterine gestation. Gestational concordance documented. Adequate interval progression compared to the prior study.
--- NOTE | 2018-08-18 20:51 | OBADHP ---
Datetime: 08/18/2018 15:22 Admit Comment, IP Provider: cc: "vaginal bleeding" HPI: Patient is a 22 y/o who presented for complaints of vaginal bleeding. She is currently at 39 weeks and 2 days gestational age, as per 1st trimester ultrasound (02/17) and LMP (11/16/17). Ge garcia previously had a miscarriage at 16 weeks gestation. Her SANDRA is scheduled for 08/23. As per most rec ent ultrasound, placenta was noted to be in posterior position. She endorses movement and contr actions. She also mentions vaginal bleed, which was described as minimal spotting. She does not have LOF. She found out about her at 12 weeks gestation and has been taking vitamins si nce then. She also takes iron supplement. OBHx: patient had a miscarriage at 16 weeks gestation from prior . GynHx: UTI (06/16/18) and newly diagnosed anemia. Menarche was at 12 y/o. Periods are regular at 28 days. Periods last for 3 days in duration. No history of Sexually Transmitted Illnesses. No fibroids or cysts. Last pap smear (2 weeks ago) was normal. PMHx: GERD, PUD PSHx: none Meds: vitamin, iron supplement, omeprazole Allergies: ranitidine, pineapple SocialHx: denies EtOH during ; previous social drinker. Denies smoking and recreational d rug use. Unemployed. Monogamous with her partner. FamHx: mother (39 y/o) and dad (39 y/o) have no significant medical illnesses ROS: denies lightheadedness, dizziness, cp, sob, falls, vomiting, changes in bowel/bladder, leg pa in/swelling. Endorses spotting. Assessment: Patient is a 22 y/o who presented for complaints of vaginal bleeding. She is currently at 39 weeks and 2 days gestational age. Mild persistent tachycardia, probably dehydration Unfavorable cervix Plan: 1. Observe, no vaginal bleed noted on exam 2. NST reactive and tachycardia ressolved with IVH 3. AmniSure done and negative 4. OB Ultrasound ordered and negative with Placenta intact, posterior and normal 5. UA with large WBC's and 2+ LE. Pt started on Ancef 6. Admit for vaginal delivery. Will augment if indicated 7. Anticipate a vaginal delivery Jim Pal, DO PGY1 Note for Dr. Wright Pelvic Type - PN: Adequate Extremities - PN: Normal Abdomen - PN: Normal Back - PN: Normal Breast - PN: Not Done Lungs - PN: Normal Heart - PN: Normal Thyroid - PN: Not Done Neurologic - PN: Not Done HEENT - PN: Normal General - PN: Normal FHR - Baseline A Provider: 160 Comments, ACOG Physical Exam: Gen: NAD. AAOx3. Comfortable in bed. Heart: RRR, normal s1/s2. Lungs: CTA bilaterally. No w/r/r. Abdomen: Gravid abdomen. Fundal height is appropriate for gestational age, approximately 39 cm. : No vaginal bleed was noted on pelvic exam. Lower Ext: no pitting edema. No calf tenderness. Negative Agatha sign. Gestation - Est Wks by US: 39.2 Vital Signs Provider: Reviewed; Within Normal Limits IP Chief Complaint: Vaginal bleeding NICHD Variability Prov Fetus A: Moderate 6-25bpm NICHD Decel Fetus A IP Provider: None Dilatation, Provider: 2 Effacement, Provider: 50 Station, Provider: -3 Genitourinary Exam: Normal DTRs - PN: Normal EGA AdmitDate IP: 39.2 IP Adm Impression: Term, intrauterine IP Admit Plan: Observation/Evaluation Datetime: 08/09/2018 08:55 IP Hx Assessment: The History has been Reviewed and is Current NICHD Accel Fetus A IP Provider: 15X15 FHR Category Provider Fetus A: Category I Datetime: 06/21/2018 14:39 IP Chief Complaint Other: nuasea/vomitig Contraction Comments Provider: none
[2018-08-18] MEDS ORDERED: Bupivacaine HCl/FentaNYL Cit 0 ML EPI ONE (21:08)
[2018-08-18] MEDS ORDERED: Nalbuphine HCL 10 mg/ml Ampule IVP ONE (22:20)
[2018-08-18] MEDS ORDERED: DiphenhydrAMINE 50 mg/ml Inj IVP STA (22:21)
[2018-08-18] MEDS ORDERED: Oxytocin 30 UNIT 30 UNITS/500 ML BAG IV SCH (22:30)
[2018-08-18] MEDS ORDERED: DiphenhydrAMINE 50 mg/ml Inj ONE (22:31)
[2018-08-18] MEDS ORDERED: Nalbuphine HCL 10 mg/ml Ampule ONE (22:31)
[2018-08-18] MEDS ORDERED: Oxytocin 30 UNIT 30 UNITS/500 ML BAG IV ONE (22:31)
[2018-08-19] MEDS ORDERED: Bupivacaine HCl/FentaNYL Cit 100 ML EPI ONE (01:06)
--- NOTE | 2018-08-19 01:46 | OBADHP ---
Datetime: 08/18/2018 20:50 Amniotic Fluid Color, Provider: Clear Datetime: 08/18/2018 19:30 Admit Comment, IP Provider: cc: "vaginal bleeding" HPI: Patient is a 22 y/o who presented for complaints of vaginal bleeding. She is currently at 39 weeks and 2 days gestational age, as per 1st trimester ultrasound (02/17) and LMP (11/16/17). Ge garcia previously had a miscarriage at 16 weeks gestation. Her SANDRA is scheduled for 08/23. As per most rec ent ultrasound, placenta was noted to be in posterior position. She endorses movement and contr actions. She also mentions vaginal bleed, which was described as minimal spotting. She does not have LOF. She found out about her at 12 weeks gestation and has been taking vitamins si nce then. She also takes iron supplement. OBHx: patient had a miscarriage at 16 weeks gestation from prior . GynHx: UTI (06/16/18) and newly diagnosed anemia. Menarche was at 12 y/o. Periods are regular at 28 days. Periods last for 3 days in duration. No history of Sexually Transmitted Illnesses. No fibroids or cysts. Last pap smear (2 weeks ago) was normal. PMHx: GERD, PUD PSHx: none Meds: vitamin, iron supplement, omeprazole Allergies: ranitidine, pineapple SocialHx: denies EtOH during ; previous social drinker. Denies smoking and recreational d rug use. Unemployed. Monogamous with her partner. FamHx: mother (39 y/o) and dad (39 y/o) have no significant medical illnesses ROS: denies lightheadedness, dizziness, cp, sob, falls, vomiting, changes in bowel/bladder, leg pa in/swelling. Endorses spotting. Assessment: Patient is a 22 y/o who presented for complaints of vaginal bleeding. She is currently at 39 weeks and 2 days gestational age. Mild persistent tachycardia, probably dehydration Unfavorable cervix Plan: 1. Admit no vaginal bleed noted on exam 2. NST reactive and tachycardia ressolved with IVH 3. AmniSure done and negative 4. OB Ultrasound ordered and negative with Placenta intact, posterior and normal 5. UA with large WBC's and 2+ LE. Probable UTI and started on Ancef 6. Admit for vaginal delivery. Will augment if indicated 7. Anticipate a vaginal delivery Jim Pal, DO PGY1 Note for Dr. Wright Pelvic Type - PN: Adequate Extremities - PN: Normal Abdomen - PN: Normal Back - PN: Normal Breast - PN: Not Done Lungs - PN: Normal Heart - PN: Normal Thyroid - PN: Normal Neurologic - PN: Normal HEENT - PN: Normal General - PN: Normal Presentation-Admit: Vertex FHR - Baseline A Provider: 160 Membranes, Provider: Intact Contraction Comments Provider: 2-3 Gestation - Est Wks by US: 39.2 Vital Signs Provider: Reviewed; Within Normal Limits IP Chief Complaint: Uterine contractions; Signs/symptoms UTI; Maternal discomfort NICHD Variability Prov Fetus A: Moderate 6-25bpm NICHD Accel Fetus A IP Provider: 10X10 FHR Category Provider Fetus A: Category I NICHD Decel Fetus A IP Provider: None Dilatation, Provider: 2 Effacement, Provider: 50 Station, Provider: -2 Genitourinary Exam: Normal DTRs - PN: Normal EGA AdmitDate IP: 39.2 IP Adm Impression: Term, intrauterine ; Intact Membranes IP Admit Plan: Admit to unit; Initiate labor protocol
--- NOTE | 2018-08-19 01:51 | OBPN ---
Datetime: 08/19/2018 01:45 IP Progress Impression: Normal progression of labor; Reassuring heart rate IP Informed Consent Obtain: Vaginal Delivery IP Procedures: Sterile Vag Exam IP Progress Plan: Continue present management; Augmentation; Antibiotic therapy; Anticipate Vaginal Delivery Membranes, Provider: Ruptured Contraction Comments Provider: 2-3 FHR - Baseline A Provider: 150 Gestation - Est Wks by US: 39.3 Presentation-Admit: Vertex IP Progress Note Comment: Tracing still with HR around 150-160 and despite IV hydration Continuing with Ancef Q 8 Hrs Epidural placed after several attempts and pt more comfortable VSS,Afebrile Hope for a vaginal delivery Vital Signs Provider: Reviewed; Within Normal Limits NICHD Accel Fetus A IP Provider: 10X10 NICHD Variability Prov Fetus A: Moderate 6-25bpm Dilatation, Provider: 7 Effacement, Provider: 90 Station, Provider: -2 NICHD Decel Fetus A IP Provider: None Datetime: 08/18/2018 20:50 Amniotic Fluid Color, Provider: Clear Datetime: 08/18/2018 19:30 FHR Category Provider Fetus A: Category I
[2018-08-19] MEDS ORDERED: Lidocaine 2% MPF (5 ml) Inj ONE ×2 (01:59→05:22)
[2018-08-19] MEDS ORDERED: Lidocaine Hydrochloride 0 ML INJ ONE (05:22)
--- NOTE | 2018-08-19 06:04 | OBDS ---
DELIVERY PERSONNEL Delivery Doctor: Horace Wright MD General Accounting Clerk: Oksana Farmer RN Anesthesiologist: Dr. Blanchard MATERNAL INFORMATION Delivery Anesthesia: Epidural Medications in Delivery: pitocin 20 units Estimated Blood Loss (ml): 300 Placenta Cultured: No Maternal Complications: None Other Maternal Complications: uneventful delivery of a living baby girl. score of 9/9 given patricia cabrera rn. RN Comments: Colleen Cotter RN, Nga Henriquez RN and Angie Gastelum RN in room to assist Provider Comments: of a viable female from [facility] and with Right hand over face. Apgars 9_9 , BW 7lbs 6oz. Bilateral vaginal sulcus tears and Right Periurethral repaired under local Anesthesia. EBL 300 mls Pt and both tolerated the procedure well and both remained in S_S condition LABOR SUMMARY EDC: 08/23/2018 00:00 No. Babies in Womb: 1 Attempted: No Labor Anesthesia: Epidural LABOR INFORMATION Reason for Induction: Not Applicable Onset of Labor: 08/18/2018 22:00 Complete Dilatation: 08/19/2018 04:16 Oxytocin: Augmentation Group B Beta Strep: Negative Antibiotics # of Doses: 1 Antibiotics Time of Last Dose: 2240 Steroids Given: None Reason Steroids Not Administered: Not Applicable MEMBRANES Membranes Rupture Method: Artificial Rupture of Membranes: 08/18/2018 20:27 Length of Rupture (hrs): 8.52 Amniotic Fluid Color: Clear Amniotic Fluid Amount: Large Amniotic Fluid Odor: Normal STAGES OF LABOR Stage 1 hrs: 6 Stage 1 min: 16 Stage 2 hrs: 0 Stage 2 min: 42 Stage 3 hrs: 0 Stage 3 min: 3 Total Time in Labor hrs: 7 Total Time in Labor min: 1 VAGINAL DELIVERY Episiotomy: None Laceration Extension: Second Degree Laceration Type: Periurethral; Sulcus Laceration Repair: Yes Laceration Repair Note: Bilateral vaginal sulcus tears repaired with 2-0 Vicryl and Right Periurethr al repaired with 3-0 Chromic and both under Local Anesthesia. EBL 300 mls Pt tolerated well. Initial Vag Sponge Count: 10 Final Vag Sponge Count: 20 Initial Vag Sharps Count: 0 Final Vag Sharps Count: 2 Sponge Count Correct: Yes Sharps Count Correct: Yes CSECTION DELIVERY Primary Indication: N/A Secondary Indication: N/A CSection Urgency: N/A CSection Incidence: N/A Labor: N/A Elective: N/A CSection Incision: N/A BABY A INFORMATION Infant Delivery Date/Time: 08/19/2018 04:58 Method of Delivery: Vaginal Born in Route : No : N/A Forceps: N/A Vacuum Extraction: N/A Shoulder Dystocia : No SHOULDER DYSTOCIA BABY A Infant Delivery Date/Time: 08/19/2018 04:58 PRESENTATION/POSITION BABY A Presentation: Cephalic Cephalic Presentation: Vertex Vertex Position: Right Occiput Anterior Breech Presentation: N/A PLACENTA INFORMATION BABY A Placenta Delivery Time : 08/19/2018 05:01 Placenta Method of Delivery: Spontaneous Placenta Status: Delivered SCORES BABY A Heart Rate 1 min: >100 bpm Resp Effort 1 min: Good Cry Reflex Irritability 1 min: Cough or Sneeze or Pulls Away Muscle Tone 1 min: Active Motion Color 1 min: Body [place], Extremities Blue Resuscitation Effort 1 min: N/A SCORE 1 MIN: 9 Heart Rate 5 min: >100 bpm Resp Effort 5 min: Good Cry Reflex Irritability 5 min: Cough or Sneeze or Pulls Away Muscle Tone 5 min: Active Motion Color 5 min: Body [place], Extremities Blue Resuscitation Effort 5 min: N/A SCORE 5 MIN: 9 INFANT INFORMATION BABY A Gestational Age at Delivery: 39.2 Gestational Status: Term Infant Outcome : Liveborn Infant Condition : Stable Sex: Female IDENTIFICATION/MEDS BABY A ID Band Number: [id number] ID Band Location: Left Leg; Left Arm Sensor Applied: Yes Sensor Number: [id number] Sensor Location : Cord Clamp WEIGHT/LENGTH BABY A Infant Birthweight (gms): 3340 Weight (lb): 7 Infant Weight (oz): 6 Infant Length Inches: 18.50 Length cms: 47.0 CORD INFORMATION BABY A No. Cord Vessels: 3 Nuchal Cord : N/A Nuchal Cord Other: 0 True Knot: 0 Cord Blood Taken: Yes Infant Suction: Mouth; Nose ASSESSMENT BABY A Infant Complications: None Physical Findings at Delivery: Within Normal Limits Infant Respirations: Appears Normal Infant Care By: Patricia Cotter RN Transferred To: Remains with Mother
[2018-08-19] MEDS ORDERED: Benzocaine/Menthol 20%-0.5% Topical Spray (60 ml) TOP PRN (06:24)
[2018-08-19] MEDS: Oxycodone/Acetaminophen 5/325 mg Tab PO PRN ×2 (15:05→21:46)
[2018-08-19] MEDS: Multiple Vitamins Tab PO SCH (15:05)
[2018-08-20] MEDS: Oxycodone/Acetaminophen 5/325 mg Tab PO PRN ×3 (07:58→22:06)
[2018-08-20 08:39] LABS: BASO # 0.1 K/uL (0.0-0.2); BASO % 0.6 % (0.0-2.0); EOS # 0.1 K/uL (0.0-0.7); EOS % 0.4 % (0.0-4.0); HEMOGLOBIN 11.2 g/dL (11.0-16.0); LYMPH # 4.2 K/uL (1.0-4.3); LYMPH % 27.9 % (20.0-40.0); MEAN CELL VOLUME 87.4 fL (81.0-99.0); MEAN CORPUSCULAR HEMOGLOBIN 29.4 pg (27.0-31.0); MEAN CORPUSCULAR HGB CONC 33.7 g/dL (33.0-37.0); MEAN PLATELET VOLUME 9.5 fL (7.2-11.7); MONO # 0.9 K/uL (0.0-0.8); MONO % 6.2 % (0.0-10.0); NEUT # 9.9 K/uL (1.8-7.0); NEUT % 64.9 % (50.0-75.0); RBC 3.8 Mil/uL (3.80-5.20); RED CELL DISTRIBUTION WIDTH 13.7 % (11.5-14.5); WHITE BLOOD COUNT 15.2 K/uL (4.8-10.8)
[2018-08-20] MEDS: Multiple Vitamins Tab PO SCH (09:02)
--- NOTE | 2018-08-20 10:57 | OBPPN ---
Datetime: 08/20/2018 10:41 PP Pain Prov: Within normal limits PP Nausea Prov: Denies PP Breasts Prov: Not Done PP Heart Prov: Normal PP Lungs Prov: Normal PP Abdomen/Uterus Prov: Normal PP Lochia Prov: Normal PP Vulva/Perineum Prov: Normal PP CVA Tenderness Prov: Normal PP Extremities Prov: Normal PP C/S Incision Prov: Not Applicable PP Progress Prov: Normal PP Comments Phys Exam Prov: Fundus firm and non-tender Mild lochia PP Impression Prov: Normal progression PP Plan Prov: Continue present management PP Progress Note Prov: PPD# 1 S/P C/O of perineal pain and not taking Motrin or Sitz baths Advised to increase po water intake, activity Will order Sitz baths and Hydrocortisone Ointment Advance care Hope to discharge home in AM IP PP Procedures: None Vital Signs Provider PP: Reviewed; Within Normal Limits
[2018-08-21 00:10] VITALS: TEMP 97.7
[2018-08-21 08:50] LABS: BASO # 0.1 K/uL (0.0-0.2); BASO % 0.7 % (0.0-2.0); EOS # 0.2 K/uL (0.0-0.7); EOS % 1.9 % (0.0-4.0); HEMOGLOBIN 11.5 g/dL (11.0-16.0); LYMPH # 3.3 K/uL (1.0-4.3); LYMPH % 31.4 % (20.0-40.0); MEAN CELL VOLUME 87.5 fL (81.0-99.0); MEAN CORPUSCULAR HEMOGLOBIN 29.4 pg (27.0-31.0); MEAN CORPUSCULAR HGB CONC 33.6 g/dL (33.0-37.0); MEAN PLATELET VOLUME 9.3 fL (7.2-11.7); MONO # 0.7 K/uL (0.0-0.8); MONO % 6.3 % (0.0-10.0); NEUT # 6.3 K/uL (1.8-7.0); NEUT % 59.7 % (50.0-75.0); RBC 3.89 Mil/uL (3.80-5.20); WHITE BLOOD COUNT 10.5 K/uL (4.8-10.8)
[2018-08-21] MEDS: Multiple Vitamins Tab PO SCH (09:06)
[2018-08-21 09:09] VITALS: BP 110/72; PULSE 65; RESP 18
[2018-08-21] MEDS ORDERED: Influenza Vaccine 60 MCG/0.5 ML SYR (3 yr & up) IM ONE (10:00)
--- NOTE | 2018-08-21 10:01 | OBPPN ---
Datetime: 08/21/2018 09:21 PP Pain Prov: Within normal limits PP Nausea Prov: Denies PP Flatus Prov: Yes PP BM Prov: No PP Breasts Prov: Not Done PP Heart Prov: Normal PP Lungs Prov: Normal PP Abdomen/Uterus Prov: Normal PP Lochia Prov: Normal PP Vulva/Perineum Prov: Normal PP CVA Tenderness Prov: Normal PP Extremities Prov: Normal PP C/S Incision Prov: Not Applicable PP Progress Prov: Normal PP Comments Phys Exam Prov: Abdomen soft, nontender. Uterus firm, nontender and at the level of the umbilicus PP Impression Prov: Normal progression PP Plan Prov: Discharge PP Progress Note Prov: PPD 2 Patient seen and examined at bedside. Patient complains of perineal pain at the site of laceration s, rated 5/10. Pain well controlled on Motrin. She is tolerating regular diet without nausea, vomitin g, abdominal pain, diarrhea. She is passing flatus, but has not had a bowel movement. She denies ches t pain, shortness of breath fevers, chills, calf pain. She is exclusively. She states h er lochia is minimal. A/P 23 year old G2P at 39.2 weeks s/p with PPD2 Stable and Satisfactory condition and recovery 1. Vitals stable with HR 65 BP 110/72 Temp 97.7 2. AM labs reveal WBC 10.5, improved from 15.2. Today, Hb 11.5, Hct 34.1, Plts 206 3. Encourage breast feeding, fluid intake, ambulation 4. F/u Dr. Ely for contraception and care in 6 weeks or as needed 5. Nothing per vagina, no sex, no douche, no tampons for 6-8 weeks. 6. Continue taking vitamins Case discussed with Dr. Kyle Amaya, PGY1 IP PP Procedures: None Vital Signs Provider PP: Reviewed; Within Normal Limits
[2018-08-21 17:15] VITALS: O2SAT 98
== END 2018-08-21 12:25 | disposition home or self-care (01) | DRG 373 ==
LOC: C.EROB 14:07 → C.9E 18:11 → C.4D 21:02 → C.4M 08-19 14:38
PROVIDERS: ADMIT Obstetrics & Gynecology; ATTEND Obstetrics & Gynecology
PROC: 10E0XZZ Delivery of Products of Conception, External Approach (ICD-10-PCS; principal; 2018-08-19)
PROC: 0KQM0ZZ Repair Perineum Muscle, Open Approach (ICD-10-PCS; 2018-08-19)
PROC: 10907ZC Drainage of Amniotic Fluid, Therapeutic from Products of Conception, Via Natural or Artificial Opening (ICD-10-PCS; 2018-08-19)
PROC: 0UQMXZZ Repair Vulva, External Approach (ICD-10-PCS; 2018-08-19)
DX: O23.43 Unspecified infection of urinary tract in pregnancy, third trimester (principal); E86.0 Dehydration; O70.1 Second degree perineal laceration during delivery; O99.284 Endocrine, nutritional and metabolic diseases complicating childbirth; O76 Abnormality in fetal heart rate and rhythm complicating labor and delivery; K21.9 Gastro-esophageal reflux disease without esophagitis; O99.62 Diseases of the digestive system complicating childbirth; O71.82 Other specified trauma to perineum and vulva; Z3A.39 39 weeks gestation of pregnancy; Z87.11 Personal history of peptic ulcer disease; Z37.0 Single live birth